=== PATIENT | male | born 1985 | race Two or more races ===

== ENCOUNTER → 2018-02-02 | Emergency (ER) | payer OTHER ==
[~2018-02-02] VITALS: Ht 177.8 cm; Wt 104.3 kg
== END | disposition home or self-care (01) ==
LOC: ER 11:56
DX: S60.211A Contusion of right wrist, initial encounter (principal); S80.02XA Contusion of left knee, initial encounter; W10.8XXA Fall (on) (from) other stairs and steps, initial encounter; Y93.89 Activity, other specified; Y92.89 Other specified places as the place of occurrence of the external cause; Y99.8 Other external cause status

== ENCOUNTER 2022-09-22 14:25 | Emergency (ER) | payer OTHER ==
[~2022-09-22] VITALS: Ht 180.3 cm; Wt 113.4 kg
== END 2022-09-22 20:59 | disposition home or self-care (01) ==
LOC: ER 14:25
DX: B04 Monkeypox (principal)